=== PATIENT | female | born 1955 | race Caucasian/White ===

== ENCOUNTER 2017-01-04 18:28 | Emergency (ER) | payer OTHER ==
[2017-01-04 18:56] VITALS: TEMP 98.9
[2017-01-04] MEDS: IBUPROFEN 200 MG TAB PO ONE (19:21)
--- NOTE | 2017-01-04 19:27 | RAD ---
EXAM DESCRIPTION: Ankle, left 2 Views CLINICAL HISTORY: 61 years,Female,pain swelling mild 1 day COMPARISON: None. TECHNIQUE: Two views of the left ankle. FINDINGS: No acute fractures or dislocations are identified. No osseous destructive lesions. There is a plantar calcaneal spur. 1.2 cm slightly radiopaque ovoid density posterior to the calcaneus which is visualized on the lateral view. This is of uncertain etiology and clinical evaluation is recommended. IMPRESSION: No acute fracture is identified. Slightly radiopaque ovoid density posterior to the calcaneus. Clinical evaluation recommended. Electronically signed by: Juan Schreiber MD 01/04/2017 7:25 PM CDT
--- NOTE | 2017-01-04 19:39 | ED.PDOC ---
History of Present Illness - General Chief Complaint: Lower Extremity Injury Stated Complaint: left ankle pain Time Seen by Provider: 01/04/17 19:04 Source: patient Exam Limitations: no limitations - History of Present Illness Initial Comments: the patient is a 61-year-old female presenting to the emergency room secondary to left ankle pain since this morning. No injury. Pain is around the ankle mortise itself. Wrist mild swelling. No erythema. No real tenderness to palpation. No pain with movement of the ankle. There is some mild discomfort with weightbearing. Pain is significantly less than earlier today. She has twisted that ankle in the past. She appears neurovascularly intact. Timing/Duration: 24 hours Severity: mild Improving Factors: immobilization Worsening Factors: movement Associated Symptoms: denies symptoms Home Medications: Ambulatory Orders Atorvastatin Calcium [Lipitor] 40 mg PO DAILY 01/04/17 Indapamide 1.25 mg PO DAILY 01/04/17 Levothyroxine Sodium 50 mcg PO DAILY 01/04/17 Omeprazole 20 mg PO DAILY 01/04/17 Potassium Chloride [K-Tab] 20 meq PO DAILY 01/04/17 Sertraline HCl 100 mg PO DAILY 01/04/17 Valsartan 160 mg PO DAILY 01/04/17 amLODIPine BESYLATE [Norvasc] 5 mg PO DAILY 01/04/17 Review of Systems - Review of Systems Constitutional: States: no symptoms reported EENTM: States: no symptoms reported Respiratory: States: no symptoms reported Cardiology: States: no symptoms reported Gastrointestinal/Abdominal: States: no symptoms reported Genitourinary: States: no symptoms reported Musculoskeletal: States: see HPI Skin: States: no symptoms reported Neurological: States: no symptoms reported Endocrine: States: no symptoms reported Hematologic/Lymphatic: States: no symptoms reported All other Systems: No Change from Baseline Past Medical History (General) - Patient Medical History Hx Stroke: No Hx Dementia: No Hx Asthma: No Hx Cardiac Disorders: No Hx Congestive Heart Failure: No Hx Pacemaker: No Hx Hypertension: Yes Hx Thyroid Disease: Yes Hx Diabetes: No Hx Gastroesophageal Reflux: Yes Hx Renal Disease: No - Social History Hx Alcohol Use: Yes Family Medical History - Family History Mother Family History: Unknown Physical Exam - Physical Exam General Appearance: Alert, Comfortable, No apparent distress Eye Exam: bilateral normal Ears, Nose, Throat: hearing grossly normal, normal ENT inspection, normal pharynx Neck: full range of motion Respiratory: no respiratory distress, no accessory muscle use Cardiovascular/Chest: normal peripheral pulses, no edema, other - regular rate Peripheral Pulses: dorsalis pedis,right: 2+, dorsalis pedis,left: 2+, posterior tibialis,right: 2+, posterior tibialis,left: 2+ Rectal Exam: deferred Extremity: normal range of motion, non-tender, no pedal edema, no calf tenderness, normal capillary refill, other - there is a slightly palpable density to the posterior of the left calcaneus corresponding to the density seen on the x-ray. It is nontender to palpation. No skin changes. 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 The patient is to take Aleve 2 tablets twice daily with food for the next 3 or 4 days. She appears to have inflammation of the ankle mortise. No evidence of fracture or dislocation r significant bony abnormality in that region on the x-ray. she does have a heel spur. She does have a small density posterior to the calcaneus on the left. This does need to be followed clinically with her primary care doctor. This may simply be calcification from a previous hematoma. ER warnings were given. No bracing recommended at this point. She is to keep well-hydrated. Departure - Departure Clinical Impression: Osteoarthritis Qualifiers: Osteoarthritis location: ankle Osteoarthritis type: unspecified Laterality: left Qualified Code(s): M19.072 - Primary osteoarthritis, left ankle and foot Disposition: Discharge to Home or Self Care Condition: Fair Departure Forms: ED Discharge - Pt. Copy, Patient Portal Self Enrollment Instructions: DI for Osteoarthritis Diet: regular diet Activity: increase activity as tolerated Home Medications: Ambulatory Orders Atorvastatin Calcium [Lipitor] 40 mg PO DAILY 01/04/17 Indapamide 1.25 mg PO DAILY 01/04/17 Levothyroxine Sodium 50 mcg PO DAILY 07/07/17 Omeprazole 20 mg PO DAILY 01/04/17 Potassium Chloride [K-Tab] 20 meq PO DAILY 01/04/17 Sertraline HCl 100 mg PO DAILY 01/04/17 Valsartan 160 mg PO DAILY 01/04/17 amLODIPine BESYLATE [Norvasc] 5 mg PO DAILY 01/04/17 Additional Instructions: the patient is a 61-year-old female presenting with ankle pain without trauma for the last 12 hours. The patient is to take Aleve 2 tablets twice daily with food for the next 3 or 4 days. She appears to have inflammation of the ankle mortise. No evidence of fracture or dislocation r significant bony abnormality in that region on the x-ray. she does have a heel spur. She does have a small density posterior to the calcaneus on the left. This does need to be followed clinically with her primary care doctor. This may simply be calcification from a previous hematoma. ER warnings were given. No bracing recommended at this point. She is to keep well-hydrated.
[2017-01-04 20:57] VITALS: BP 152/87; O2SAT 98
== END 2017-01-04 19:45 | disposition home or self-care (01) ==
LOC: ER 18:28
DX: M19.072 Primary osteoarthritis, left ankle and foot (principal); M77.52 Other enthesopathy of left foot and ankle; I10 Essential (primary) hypertension; E07.9 Disorder of thyroid, unspecified; K21.9 Gastro-esophageal reflux disease without esophagitis; Z79.899 Other long term (current) drug therapy